=== PATIENT | female | born 1995 | race Two or more races ===

== ENCOUNTER 2022-05-14 00:49 | Emergency (ER) | payer MEDICAID ==
[~2022-05-14] VITALS: Ht 154.9 cm; Wt 58.0 kg
[2022-05-14] MEDS ORDERED: HYDROCODONE/ACETAMINOPHEN 5/325MG TABLET PO STA (02:27)
[2022-05-14] MEDS ORDERED: LORATADINE/PSEUDOEPHED 5/120MG TABLET 12HR PO ONE (02:30)
[2022-05-14 02:45] VITALS: BP 114/78
[2022-05-14] MEDS ORDERED: CIPHCO LEFT EAR (07:34)
== END 2022-05-14 08:51 | disposition home or self-care (01) ==
LOC: ER 00:49
DX: S09.8XXA Other specified injuries of head, initial encounter (principal); H72.92 Unspecified perforation of tympanic membrane, left ear; Y08.89XA Assault by other specified means, initial encounter; Y93.89 Activity, other specified; Y92.89 Other specified places as the place of occurrence of the external cause; Y99.8 Other external cause status
CPT/HCPCS: 70551; 99284